=== PATIENT | male | born 1985 | race Caucasian/White ===

== ENCOUNTER → 2017-04-27 | Outpatient (CLI) | payer OTHER ==
[~2017-04-27] MED LIST: DOCU100C PO; HYDR2TAB13 PO; OXYC-302 PO; TIZA4TAB9 PO; [UNRECOGNIZED DRUG - REMARK]
== END | disposition home or self-care (01) ==
LOC: RAD 07:17
PROVIDERS: ATTEND Chiropractor
DX: R10.2 Pelvic and perineal pain (principal); G89.29 Other chronic pain; M54.5 Low back pain
CPT/HCPCS: 72170

== ENCOUNTER → 2018-07-26 | Outpatient (CLI) | payer OTHER ==
[~2018-07-26] MED LIST changes: +DOCU-180 PO; -DOCU100C PO; -HYDR2TAB13 PO; +HYDR2TAB29 PO
[2018-07-26 09:49] LABS: BASOPHILS # (AUTO) 0.05 x10^3/uL (0-0.1); BASOPHILS % (AUTO) 1 % (0-1); EOSINOPHILS # (AUTO) 0.16 x10^3/uL (0-0.4); EOSINOPHILS % (AUTO) 2 % (1-7); LYMPHOCYTES % (AUTO) 34 % (22-44); MD NO; MEAN CORPUSCULAR HEMOGLOBIN 29.6 pg (27.5-34.5); MEAN CORPUSCULAR HGB CONC 33.2 g/dL (33.2-36.2); MEAN CORPUSCULAR VOLUME 89.1 fL (81-97); MEAN PLATELET VOLUME 8.5 fL (7.4-10.4); MONOCYTES # (AUTO) 0.74 x10^3/uL (0.2-0.8); MONOCYTES % (AUTO) 9 % (2-9); NEUTROPHILS % (AUTO) 55 % (42-75); PLATELET COUNT 283 x10^3/uL (130-400); RED BLOOD COUNT 4.97 x10^6/uL (4.38-5.82); RED CELL DISTRIBUTION WIDTH 12.6 % (9.4-14.8)
[2018-07-26 09:50] LABS: ALBUMIN 4.3 g/dL (3.4-5.0); ANION GAP 6 mmol/L (5-15); CALCIUM 8.9 mg/dL (8.5-10.1); CHLORIDE 106 mmol/L (98-107)
[2018-07-26 10:01] LABS: ALANINE AMINOTRANSFERASE 32 U/L (12-78); ALKALINE PHOSPHATASE 70 U/L (45-117); BILIRUBIN,TOTAL 0.7 mg/dL (0.2-1.0); CHOL/HDL RATIO 5.5; CHOLESTEROL, TOTAL 182 mg/dL (140-239); CREATININE 1.11 mg/dL (0.7-1.3); FREE T4 (FREE THYROXINE) 1.19 ng/dL (0.76-1.46); HDL CHOL % 18 % (26-37); HDL CHOLESTEROL (DIRECT) 33 mg/dL (40-60); LDL CHOLESTEROL,CALCULATED 117 mg/dL (54-169); LDL/HDL RATIO 3.5 (0.5-3.0); TOTAL PROTEIN 8.1 g/dL (6.4-8.2); TRIGLYCERIDES 159 mg/dL (50-200); VLDL CHOLESTEROL 32 mg/dL (0-25)
== END | disposition home or self-care (01) ==
LOC: LAB 09:24
PROVIDERS: ATTEND Nurse Practitioner Primary Care
DX: Z00.01 Encounter for general adult medical examination with abnormal findings (principal)
CPT/HCPCS: 36415; 80053; 80061; 82306; 84439; 84443; 84481; 85025

== ENCOUNTER → 2018-09-30 | Outpatient (CLI) | payer OTHER | END | disposition home or self-care (01) | LOC: LAB 15:45 | PROVIDERS: ATTEND Nurse Practitioner Primary Care | DX: I10 Essential (primary) hypertension (principal) | CPT/HCPCS: 36415; 80051 ==

== ENCOUNTER 2018-12-13 18:23 | Emergency (ER) | payer OTHER ==
[~2018-12-13] VITALS: Ht 180.3 cm; Wt 70.0 kg
[2018-12-13 18:25] VITALS: BP 154/70
[2018-12-13] MEDS ORDERED: CEPHALEXIN 500 MG CAPSULE PO ONE (18:30)
[2018-12-13] MEDS ORDERED: CEPHALEXIN 500 MG CAPSULE ONE (18:34)
--- NOTE | 2018-12-13 18:36 | NUR ---
MEDICATED PER EMAR
--- NOTE | 2018-12-13 18:49 | NUR ---
NO S/S OF ABX RXN NOTED. DC EDUCATION PROVIDED. PT DEMONSTRATES UNDERSTANDING
== END 2018-12-13 18:50 | disposition home or self-care (01) ==
LOC: ED 18:44
DX: L03.011 Cellulitis of right finger (principal)
CPT/HCPCS: 99283

== ENCOUNTER → 2019-03-03 | Outpatient (CLI) | payer OTHER | END | disposition home or self-care (01) | LOC: CFH 07:34 | PROVIDERS: ATTEND Internal Medicine Cardiovascular Disease | DX: I10 Essential (primary) hypertension (principal) | CPT/HCPCS: 93306 ==